=== PATIENT | female | born 1995 | race African-American/Black ===

== ENCOUNTER 2019-08-24 11:53 | Emergency (ER) | payer BC, SELFPAY ==
[2019-08-24 12:05] VITALS: BP 139/86; PULSE 79; RESP 16; TEMP 37.2; O2SAT 100
--- NOTE | 2019-08-24 12:42 | PC.NURSE ---
in br to obtain ua spec.
--- NOTE | 2019-08-24 12:58 | ED.FEMALEGU ---
HPI - Female Genitourinary General Chief complaint: TECHNICAL LEAD Stated complaint: Pain in private area Time Seen by Provider: 08/24/19 12:58 Source: patient Mode of arrival: ambulatory Limitations: no limitations History of Present Illness HPI Narrative: Carolynn Munoz is a 24 yo female with no PMH who comes to [facility] care with complaints of vaginal pain and tenderness, that she rates as 8 out of 10, that started a week ago Related Data Home Medications Medication Instructions Recorded Confirmed Bc Pill 08/24/19 Allergies Allergy/AdvReac Type Severity Reaction Status Date / Time No Known Allergies Allergy Verified 08/24/19 12:29 Review of Systems Review of Systems: Narrative: CONSTITUTIONAL: Denies fever, chills, sweats. EYES: Denies visual changes, redness, discharge. ENT: Denies rhinorrhea, congestion, sore throat, otalgia. CARDIOVASCULAR: Denies chest pain, palpitations, edema. RESPIRATORY: Denies dyspnea, wheezing, cough GASTROINTESTINAL: Denies abdominal pain, nausea, vomiting, diarrhea. GENITOURINARY: Denies dysuria, hematuria, lots of abnormal discharge with pain SKIN: Denies rash or itching. NEUROLOGIC: Denies numbness, or focal weakness. PSYCHIATRIC: Denies anxiety or depression. [facility] Family History Family History Other No active medical problems Social History Social History (Updated 08/24/19 @ 13:01 by Lisset Schaefer CNP) Smoking status: Never smoker Alcohol intake: current Comments At time of signature, I agree with nursing past medical, surgical, social and family history. There is no relevant family history pertinent to the presenting complaint. Exam Narrative: Exam Narrative: GENERAL: This is a well-nourished, well-developed patient, in no apparent distress. HEAD: normocephalic, atraumatic. EYES: PERRL. Sclera clear/white. Vision is grossly intact. EARS: External ears normal, auditory canals clear and without drainage, TMs normal without perforation. Hearing grossly intact. NOSE: External nose normal with no obvious nasal discharge, nares without redness, no rhinorrhea. THROAT: Mucous membranes moist, posterior pharynx clear. NECK: Neck supple, non-tender without lymphadenopathy, masses or thyromegaly. CARDIOVASCULAR: Regular rate and rhythm without murmurs, gallops, or rubs. RESPIRATORY: Clear to auscultation. Breath sounds equal bilaterally. No wheezes, rales, or rhonchi. GASTROINTESTINAL: Abdomen soft, non-tender, nondistended. SKIN: warm, intact with no suspicious lesions or rash, good texture and turgor. NEURO: awake, alert, and oriented to person, place and time. There were no obvious focal neurologic abnormalities. Steady gait EXTREMITIES: Normal range of motion. No edema. BACK: Nontender without deformity or crepitance. No flank tenderness. : Vaginal vault is erythematous no lesions noted, patient has both CMT and adnexal tenderness, pain on insertion of speculum Course Course Emergency Course: Pelvic exam done, GC chlamydia sent as well as UA Treated for GC chlamydia, patient has CMT so will also receive 2 weeks of doxycycline and 2 doses of Diflucan on discharge Vital Signs Vital signs: Vital Signs Temperature 99.0 F 08/24/19 12:05 Pulse Rate 79 08/24/19 12:05 Respiratory Rate 16 08/24/19 12:05 Blood Pressure 139/86 08/24/19 12:05 Pulse Oximetry 100 08/24/19 12:05 Temperature 99.0 F 08/24/19 12:05 Pulse Rate 79 08/24/19 12:05 Respiratory Rate 16 08/24/19 12:05 Blood Pressure 139/86 08/24/19 12:05 Pulse Oximetry 100 08/24/19 12:05 MDM - Female Genitourinary Differential Diagnosis Differential diagnosis: Likely urinary tract infection, bacterial vaginosis, cervicitis and cystitis Lab Data Labs: Urine Glucose Negative Reference Range: Negative Urine Bilirubin Negative Reference Range: Negative Urine Ketone
--- NOTE | 2019-08-24 13:05 | PC.NURSE ---
pelvic set up done.
--- NOTE | 2019-08-24 13:36 | PC.NURSE ---
pelvic exam done by assembler caterpillar spider
[2019-08-24] MEDS: cefTRIAXone 250 MG VIAL IM (13:53)
[2019-08-24] MEDS: AZITHROMYCIN 250 MG TABLET 1000 MG PO (13:54)
--- NOTE | 2019-08-24 14:12 | PC.NURSE ---
did scan medications at bedside. unknown scanning problem.
== END 2019-08-24 14:13 | disposition home or self-care (01) ==
PROVIDERS: Emergency Provider Nurse Practitioner
DX: N73.0 Acute parametritis and pelvic cellulitis (principal)
CPT/HCPCS: 81003; 87086; 87088; 87491; 87591; 87661; 96372; 99203; A9270; G0463; J0696